=== PATIENT | female | born 1970 | race Caucasian/White ===

== ENCOUNTER 2023-03-23 13:28 | Emergency (ER) | payer SELFPAY | END 2023-03-23 15:57 | disposition home or self-care (01) | LOC: JD.ED 13:28 | DX: S60.222A Contusion of left hand, initial encounter (principal); Z88.1 Allergy status to other antibiotic agents; W23.0XXA Caught, crushed, jammed, or pinched between moving objects, initial encounter | CPT/HCPCS: 73130-26-LT; 73130-LT; 99283 ==